=== PATIENT | male | born 1995 | race Caucasian/White ===

== ENCOUNTER 2016-08-31 17:49 | Emergency (ER) | payer MEDICAID ==
[~2016-08-31] VITALS: Ht 188 cm; Wt 81.6 kg
[2016-08-31 17:55] VITALS: BP 128/85
== END 2016-08-31 19:48 | disposition home or self-care (01) ==
LOC: ER 17:57
DX: F41.9 Anxiety disorder, unspecified (principal); F42.9 Obsessive-compulsive disorder, unspecified; Z88.0 Allergy status to penicillin
CPT/HCPCS: A4606; Z7502; Z7610

== ENCOUNTER 2020-08-04 02:10 | Emergency (ER) | payer MEDICAID ==
[~2020-08-04] VITALS: Ht 188 cm; Wt 113.4 kg
--- NOTE | 2020-08-04 02:21 | NUR ---
[id number] FROM HOME, +ETOH PER RA, BS 105, PT TO BED 14, APPEARS INTOXICATED, UNABLE TO ANSWER QUESTIONS AT THIS TIME. PT CALM AND COOPERATIVE, GOWNED, PLACED ON MONITOR,. VSS, NAD NOTED. PENDING ER PROVIDER RAJESH
--- NOTE | 2020-08-04 04:36 | NUR ---
PT MOVED TO BED 9, PT WAS BEING VERBALLY ABUSIVE TO PT NEXT DOOR. ATTEMPTED TO DE-ESCALATE, NOTED GETTING MORE AGGRESSIVE. MOVED AT THIS TIME.
--- NOTE | 2020-08-04 07:55 | NUR ---
[facility] [place] [phone]. CAN BE CALLED FOR EX ASSISTANT/PROGRAM DIRECTOR.
--- NOTE | 2020-08-04 08:09 | NUR ---
THE PATIENT IS SLEEPING IN BED. PATIENT IS RESPONSIVE TO VERBAL STIMULI. DENIES ANY DISTRESS AT THIS TIME. WILL CONTINUE TO MONITOR.
--- NOTE | 2020-08-04 08:42 | NUR ---
The patient is alert and oriented X4. Denies pain. In room air and denies SOB. Repsiration regualr and unlabored. Denies SI/HI. Patient discharged to home in stable condition. Written and verbal after care instructions given. Patient verbalizes understanding of instruction. The patient left ER in stable condition.
[2020-08-04 08:46] VITALS: BP 142/85
== END 2020-08-04 08:47 | disposition home or self-care (01) ==
LOC: ER 02:12
DX: F10.129 Alcohol abuse with intoxication, unspecified (principal); Y90.9 Presence of alcohol in blood, level not specified; Z88.0 Allergy status to penicillin

== ENCOUNTER 2021-01-09 18:03 | Emergency (ER) | payer BC, MEDICAID ==
[~2021-01-09] VITALS: Ht 188 cm; Wt 93.0 kg
[2021-01-09 18:42] VITALS: BP 119/74
--- NOTE | 2021-01-09 19:55 | NUR ---
Patient discharged to home in stable condition. Written and verbal after care instructions given. Patient verbalizes understanding of instruction. Pt ambulatory with a steady gait
== END 2021-01-09 19:55 | disposition home or self-care (01) ==
LOC: ER 18:07
DX: F41.9 Anxiety disorder, unspecified (principal); F43.10 Post-traumatic stress disorder, unspecified; Z88.0 Allergy status to penicillin
CPT/HCPCS: 71045-TC

== ENCOUNTER 2022-01-21 23:48 | Emergency (ER) | payer BC, OTHER ==
[~2022-01-21] VITALS: Ht 175.3 cm; Wt 74.8 kg
--- NOTE | 2022-01-21 23:52 | NUR ---
Michelle from a bar, for etoh. PT A/OX3. TOLERATING R/A WELL WITH NO SOB. 1:1 SITTER AT PT'S BEDSIDE. SAFETY MEASURES IN PLACE.
--- NOTE | 2022-01-22 00:18 | NUR ---
PT TAKEN TO CT VIA DEVAUGHN
--- NOTE | 2022-01-22 00:29 | NUR ---
PT RETURNED TO ER BED [address]
--- NOTE | 2022-01-22 01:08 | NUR ---
PATIENT IS A, OX4. AMBULATORY WITH STEAY GAITS. PO INTAKE TOLERATED WELL. DENIED SI/HI. REPORTED FEELING WELL AND WILLING TO LEAVE, MADE AWARE
--- NOTE | 2022-01-22 01:29 | NUR ---
LEFT VOICE MESSAGE TO TEENA (MOTHER) [phone]
--- NOTE | 2022-01-22 02:05 | NUR ---
Patient discharged to home in stable condition with friend. Written and verbal after care instructions given. Patient verbalizes understanding of instruction. PT ambulatory with a steady gait
--- NOTE | 2022-01-22 02:05 | NUR ---
PATEINT WAS PICKED UP BY HIS FRIEND IN STABLE CONDITION
[2022-01-22 02:09] VITALS: BP 129/87
== END 2022-01-22 02:11 | disposition home or self-care (01) ==
LOC: ER 23:53
DX: S00.81XA Abrasion of other part of head, initial encounter (principal); F10.129 Alcohol abuse with intoxication, unspecified; F41.9 Anxiety disorder, unspecified; F43.10 Post-traumatic stress disorder, unspecified; Z88.0 Allergy status to penicillin; Y90.9 Presence of alcohol in blood, level not specified; X58.XXXA Exposure to other specified factors, initial encounter; Y93.89 Activity, other specified; Y92.89 Other specified places as the place of occurrence of the external cause; Y99.8 Other external cause status
CPT/HCPCS: 70450-TC; 72125-TC